=== PATIENT | female | born 1970 | race Two or more races ===

== ENCOUNTER 2020-09-14 12:52 | Emergency (ER) | payer SELFPAY ==
--- NOTE | 2020-09-14 13:55 | NUR ---
assumed care of pt. pt BIB family for eval after a fall at home last nocs. per family, pt is COVID+ and was walking last night, agitated an fell hitting the back of her head on a flower pot. +LOC. pt has a laceration behind her R ear. no bleeding noted at this time pt has not had a vaccine, nor have any of her family members. pt is also sick at bedside. pt drowsy but oriented and follows commands appropriatley pt and family members given education regarding the importane of COVID vaccination as well as the importance of isolation at home. pt and family verbalized understanding
[2020-09-14] MEDS ORDERED: SODIUM CHLORIDE FLUSH 10ML SYR IVF ONE (14:00)
[2020-09-14] MEDS ORDERED: SODIUM CHLORIDE 0.9% 1,000ML IVBOLUS ONE (14:00)
[2020-09-14] MEDS ORDERED: SODIUM CHLORIDE 0.9% 1,000 ML IV ONE (14:00)
--- NOTE | 2020-09-14 14:25 | NUR ---
pt has been medicated per order. updated on POC CXR at bedside isolation precautions in place
--- NOTE | 2020-09-14 14:40 | NUR ---
pt in CT scan
[2020-09-14 14:41] LABS: ALBUMIN 2.5 g/dL (3.4-5.0); CALCIUM 7.8 mg/dL (8.5-10.1); CREATININE 0.61 mg/dL (0.55-1.02)
[2020-09-14 14:44] LABS: TROPONIN I < 0.015 ng/mL (0.000-0.045)
[2020-09-14 14:46] LABS: BASOPHILS % (AUTO) 0 % (0-1); EOSINOPHILS % (AUTO) 0 % (1-7); LYMPHOCYTES % (AUTO) 23 % (22-44); MEAN CORPUSCULAR HEMOGLOBIN 31.4 pg (27.0-34.8); MEAN CORPUSCULAR HGB CONC 33.4 g/dL (32.4-35.8); MEAN PLATELET VOLUME 9.7 fL (7.4-10.4); MONOCYTES % (AUTO) 6 % (2-9); NEUTROPHILS % (AUTO) 71 % (42-75); PLATELET COUNT 219 x10^3/uL (130-400); RED BLOOD COUNT 4.24 x10^6/uL (3.82-5.3); RED CELL DISTRIBUTION WIDTH 13.1 % (9.6-15.2)
[2020-09-14 14:47] LABS: ANION GAP 10 mmol/L (5-15); CHLORIDE 109 mmol/L (98-107)
--- NOTE | 2020-09-14 15:17 | NUR ---
Chart up for MD recheck
--- NOTE | 2020-09-14 15:31 | NUR ---
pt resting with eyes closed. awaiting recheck
--- NOTE | 2020-09-14 16:02 | NUR ---
report to [facility] for lunch
--- NOTE | 2020-09-14 16:57 | NUR ---
this pt has been D/C by another RN
[2020-09-14 17:01] VITALS: BP 106/56
== END 2020-09-14 17:03 | disposition home or self-care (01) ==
LOC: ED 13:42
DX: U07.1 COVID-19 (principal); J12.82 Pneumonia due to coronavirus disease 2019; S01.01XA Laceration without foreign body of scalp, initial encounter; S09.90XA Unspecified injury of head, initial encounter; R06.02 Shortness of breath; W18.30XA Fall on same level, unspecified, initial encounter; Y93.89 Activity, other specified; Y92.009 Unspecified place in unspecified non-institutional (private) residence as the place of occurrence of the external cause; Y99.8 Other external cause status
CPT/HCPCS: 36415; 70450; 71045; 80048; 82040; 83605; 84484; 85025; 93005; 96360; 99285; J7030